=== PATIENT | female | born 1955 | race Caucasian/White ===

== ENCOUNTER → 2017-10-19 | Outpatient (CLI) | payer OTHER ==
[2017-10-19] MEDS: PROPARACAINE 0.5% 15 ML OPH (10:59)
[2017-10-19] MEDS: PHENYLephrine 10% 5 ML OPH (10:59)
[2017-10-19] MEDS: APRACLONIDINE 1% 0.1 ML OPH (10:59)
[2017-10-19] MEDS: TROPICAMIDE 1% 3 ML OPH (10:59)
== END | disposition home or self-care (01) ==
LOC: RAD 10:14
DX: H26.9 Unspecified cataract (principal)
CPT/HCPCS: 66821